=== PATIENT | female | born 1960 | race Caucasian/White ===

== ENCOUNTER 2016-08-24 09:01 | Outpatient (CLI) ==
--- NOTE | 2016-08-24 09:26 | DI ---
EXAM: Two views of the chest. History: Chest pain, smoker. Comparison: Chest radiograph 12/22/2011 Findings: Heart size is normal. No focal consolidation. No appreciable pleural fluid and no pneu mothorax. No acute osseous abnormalities. Impression: No acute cardiopulmonary process.
== END 2016-08-24 09:02 | disposition home or self-care (01) ==
LOC: RAD 09:01
PROVIDERS: ATTEND Internal Medicine
DX: F17.210 Nicotine dependence, cigarettes, uncomplicated (principal)